=== PATIENT | male | born 1980 | race Caucasian/White ===

== ENCOUNTER → 2019-04-01 | Outpatient (CLI) | payer OTHER ==
--- NOTE | 2019-04-01 11:46 | US ---
EXAMINATION TYPE: US abdomen complete DATE OF EXAM: 04/01/2019 COMPARISON: NONE CLINICAL HISTORY: rR10.84 Generalized Abdominal Pain. Intermittent Right flank pain and RLQ pain x 3 weeks; patient drinks 6 pack of beer /day x couple of years. EXAM MEASUREMENTS: Liver Length: 13.6 cm Gallbladder Wall: 0.2 cm CBD: 0.3 cm Spleen: 8.1 cm Right Kidney: 10.1 x 6.0 x 4.0 cm Left Kidney: 10.3 x 4.9 x 6.3 cm Pancreas: Dilated pancreatic duct measuring 3 mm Liver: wnl Gallbladder: wnl Evidence for sonographic Al's sign: no CBD: wnl Spleen: wnl Right Kidney: wnl Left Kidney: wnl Upper IVC: wnl Abd Aorta: wnl The liver is homogenous. The intrahepatic portion of the IVC and proximal abdominal aorta are within normal limits. There is no evidence of cholelithiasis. Common bile duct is unremarkable. Pancreati c ductal dilatation is seen. The spleen is unremarkable. Kidneys are symmetric and free of hydroneph rosis. No renal lesions are seen. IMPRESSION: 1. Dilated pancreatic duct is seen. This can be on the basis of chronic pancreatitis, main branch IPM N , or distal obstructing mass/calculus. This could be further evaluated with MRCP. Of note there is no common bile duct dilatation, which more typically is seen in pancreatic head neoplasms. 2. No sonographic evidence of cholelithiasis nor acute cholecystitis. 3. Hepatic echotexture appears overall unremarkable.
== END | disposition home or self-care (01) ==
LOC: RADUSWWP 10:17
PROVIDERS: ATTEND Nurse Practitioner Family
DX: K86.89 Other specified diseases of pancreas (principal); R10.84 Generalized abdominal pain
CPT/HCPCS: 76700